=== PATIENT | male | born 1985 | race Caucasian/White ===

== ENCOUNTER 2022-06-20 11:41 | Day surgery (SDC) | payer OTHER ==
[2022-06-15 12:49] VITALS: BMI 21.7
[2022-06-20] MEDS ORDERED: GLYCOPYRROLATE 0.2 MG/1 ML VIAL ONE (12:20)
[2022-06-20] MEDS ORDERED: ONDANSETRON 4 MG/2 ML VIAL ONE (12:20)
[2022-06-20] MEDS ORDERED: ALBUTEROL SO4 HFA INHALER IH ONE (12:25)
[2022-06-20 13:04] VITALS: RESP 16; TEMP 98
[2022-06-20 13:05] VITALS: BP 117/71; PULSE 79
== END 2022-06-20 13:26 | disposition home or self-care (01) ==
LOC: FASU-ENDO 11:41
PROVIDERS: ATTEND Internal Medicine Gastroenterology
PROC: 0DB68ZX Excision of Stomach, Via Natural or Artificial Opening Endoscopic, Diagnostic (ICD-10-PCS; 2022-06-20)
PROC: 0DB58ZX Excision of Esophagus, Via Natural or Artificial Opening Endoscopic, Diagnostic (ICD-10-PCS; 2022-06-20)
PROC: 0D748DZ Dilation of Esophagogastric Junction with Intraluminal Device, Via Natural or Artificial Opening Endoscopic (ICD-10-PCS; 2022-06-20)
PROC: 0DB98ZX Excision of Duodenum, Via Natural or Artificial Opening Endoscopic, Diagnostic (ICD-10-PCS; principal; 2022-06-20 12:34)
DX: K29.50 Unspecified chronic gastritis without bleeding (principal); K21.00 Gastro-esophageal reflux disease with esophagitis, without bleeding; R13.10 Dysphagia, unspecified; R12 Heartburn
CPT/HCPCS: 88305-TC; 88342-TC